=== PATIENT | male | born 1970 | race Asian ===

== ENCOUNTER 2017-06-16 21:50 | Emergency (ER) | payer BC, OTHER ==
[~2017-06-16] VITALS: Ht 165.1 cm; Wt 68.0 kg
[2017-06-16 22:00] VITALS: BP_SYST 136; BP_SYST 157; BP_DIAS 109; BP_DIAS 81
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
--- NOTE | 2017-06-16 22:01 | NUR ---
Patient being evaluated by physician at bedside.
[2017-06-16 22:22] VITALS: BP 150/102
--- NOTE | 2017-06-16 22:22 | NUR ---
Patient discharged with v/s stable. Written and verbal after care instructions given and explained. Patient verbalized understanding. Ambulatory with steady gait. All questions addressed prior to discharge. Advised to follow up with PMD.
== END 2017-06-16 22:22 | disposition home or self-care (01) ==
LOC: MED 21:50
DX: S80.12XA Contusion of left lower leg, initial encounter (principal); V49.40XA Driver injured in collision with unspecified motor vehicles in traffic accident, initial encounter; Y93.89 Activity, other specified; Y92.488 Other paved roadways as the place of occurrence of the external cause; Y99.8 Other external cause status
CPT/HCPCS: 73590; 99284

== ENCOUNTER 2019-05-20 09:40 | Emergency (ER) | payer BC, OTHER ==
[~2019-05-20] VITALS: Ht 172.7 cm; Wt 74.8 kg
--- NOTE | 2019-05-20 09:41 | NUR ---
Patient ambulated to bed 1. RN evaluating patient at bedside.
[2019-05-20 09:43] VITALS: BP 158/98
--- NOTE | 2019-05-20 09:50 | NUR ---
sales support technician at bedside.
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
[2019-05-20 09:54] VITALS: BP 158/98
== END 2019-05-20 09:55 | disposition home or self-care (01) ==
LOC: EEVIPCON 09:40 → MED 09:40
DX: S63.92XA Sprain of unspecified part of left wrist and hand, initial encounter (principal); W18.30XA Fall on same level, unspecified, initial encounter; Y93.89 Activity, other specified; Y92.89 Other specified places as the place of occurrence of the external cause; Y99.8 Other external cause status
CPT/HCPCS: 73130; 99283; Q0092